=== PATIENT | male | born 1955 | race Caucasian/White ===

== ENCOUNTER → 2017-06-13 | Outpatient (CLI) | payer MEDICARE, OTHER ==
[~2017-06-13] MED LIST: BENADRYL25 MG PO; CENTRUM SILVER1 EAC3 PO; CHLORHEXIDINE473 ML MM; CITRUCEL907 G1 PO; DOCUSATE SODIU100 MG PO; EAR WAX DROPS15 ML BOTH EARS; ERGOCALCIF50000 UNIT PO; EXTRA STRENGTH500 M1 PO; GEMFIBROZIL600 MG PO; LEVOTHYROXINE100 MCG PO; LOPERAMIDE2 MG PO; MILK OF MAGN PO; NORCO 5/3251 TABLET PO; OMEPRAZOLE40 M1 PO; OYSTER SHELL 51 EACH PO; PEDIADERM TA 0115 GM TP; PROVENTIL,2.5 MG/3 M IH; Q-TUSSIN DM SY240 ML PO; SENNA LAX8.6 MG PO; TENORMIN50 MG PO; TRAMADOL HCL50 MG PO; TRIAZOLAM0.25 MG PO; VITAMIN D31000 UNIT PO
== END | disposition home or self-care (01) ==
LOC: CDC 10:00
DX: Z01.810 Encounter for preprocedural cardiovascular examination (principal); C44.319 Basal cell carcinoma of skin of other parts of face; I45.4 Nonspecific intraventricular block; R94.31 Abnormal electrocardiogram [ECG] [EKG]
CPT/HCPCS: 93000

== ENCOUNTER 2017-06-14 05:39 | Day surgery (SDC) | payer OTHER ==
[~2017-06-14] VITALS: Ht 152.4 cm; Wt 54.0 kg
[~2017-06-14 05:39] MED LIST changes: -NORCO 5/3251 TABLET PO
[2017-06-14 06:45] VITALS: BP 128/76
[2017-06-14] MEDS ORDERED: NORCO 5/3251 TABLET PO (09:28)
[2017-06-14 09:56] VITALS: BP 132/73
[2017-06-14 10:50] VITALS: BP 105/55
== END 2017-06-14 11:00 | disposition home or self-care (01) ==
LOC: SDC
PROC: 0HB1XZZ Excision of Face Skin, External Approach (ICD-10-PCS; principal; 2017-06-14)
PROC: 0HB0XZZ Excision of Scalp Skin, External Approach (ICD-10-PCS; 2017-06-14)
DX: C44.319 Basal cell carcinoma of skin of other parts of face (principal); F79 Unspecified intellectual disabilities; I10 Essential (primary) hypertension; K21.9 Gastro-esophageal reflux disease without esophagitis; G89.29 Other chronic pain; M54.5 Low back pain; E03.9 Hypothyroidism, unspecified; E55.9 Vitamin D deficiency, unspecified
CPT/HCPCS: 81003; 87641; 88305; J0690; J1100; J2405; J3010

== ENCOUNTER 2017-08-17 11:37 | Day surgery (SDC) | payer OTHER ==
[~2017-08-17] VITALS: Ht 154.9 cm; Wt 57.6 kg
[~2017-08-17 11:37] MED LIST changes: +NORCO 5/3251 TABLET PO; +[UNRECOGNIZED DRUG - OTHER] PO
[2017-08-17 12:48] VITALS: BP 129/59
[2017-08-17 16:59] VITALS: BP 123/69
[2017-08-17 17:30] VITALS: BP 133/69
== END 2017-08-17 17:40 | disposition home or self-care (01) ==
LOC: SDC 11:37
DX: C44.319 Basal cell carcinoma of skin of other parts of face (principal); I10 Essential (primary) hypertension; K21.9 Gastro-esophageal reflux disease without esophagitis; E03.9 Hypothyroidism, unspecified; F79 Unspecified intellectual disabilities
CPT/HCPCS: 87641; J0131; J0690; J2250; S0020